=== PATIENT | female | born 2005 | race Caucasian/White ===

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

== ENCOUNTER 2024-01-04 10:47 | Emergency (ER) | payer BC ==
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
[2024-01-04 11:36] VITALS: TEMP 98.5
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
[2024-01-04 13:30] VITALS: BP 116/73; PULSE 80; RESP 16
== END 2024-01-04 13:08 | disposition home or self-care (01) ==
LOC: EC 10:47
DX: R07.9 Chest pain, unspecified (principal); V49.9XXA Car occupant (driver) (passenger) injured in unspecified traffic accident, initial encounter; Y92.410 Unspecified street and highway as the place of occurrence of the external cause
CPT/HCPCS: 71046; 99285